=== PATIENT | male | born 1960 | race African-American/Black ===

== ENCOUNTER 2019-07-03 04:24 | Emergency (ER) | payer MEDICAID ==
[~2019-07-03] VITALS: Ht 190.5 cm; Wt 113.4 kg
[~2019-07-03 04:24] MED LIST: CYCL1TAB18 PO; DICL75TA2 PO; IBUP800T24 PO
[2019-07-03 04:43] VITALS: BP 135/76
[2019-07-03] MEDS ORDERED: KETOROLAC TROMETH 60MG/2ML VIAL IM ONE (07:00)
== END 2019-07-03 07:43 | disposition home or self-care (01) ==
LOC: ER 04:24
DX: M17.11 Unilateral primary osteoarthritis, right knee (principal); M54.32 Sciatica, left side
CPT/HCPCS: 73562; 96372; 99283; J1885

== ENCOUNTER 2019-11-20 05:07 | Emergency (ER) | payer MEDICAID ==
[~2019-11-20] VITALS: Ht 193 cm; Wt 113.4 kg
[~2019-11-20 05:07] MED LIST changes: +CYCL10TA6 PO; -CYCL1TAB18 PO
[2019-11-20 06:49] VITALS: BP 139/81
[2019-11-20] MEDS ORDERED: KETOROLAC TROMETH 60MG/2ML VIAL IM ONE (07:00)
== END 2019-11-20 07:19 | disposition home or self-care (01) ==
LOC: ER 05:07
DX: M17.12 Unilateral primary osteoarthritis, left knee (principal); M17.11 Unilateral primary osteoarthritis, right knee
CPT/HCPCS: 73560; 96372; 99283; J1885